=== PATIENT | female | born 1995 | race Caucasian/White ===

== ENCOUNTER → 2022-06-22 | Outpatient (CLI) | payer OTHER, SELFPAY ==
[2022-06-22 16:13] LABS: Hemoglobin A1c 5.1 % (3.8-5.6)
[2022-06-22 16:15] LABS: Estradiol 70.9 pg/mL; Follicle Stimulating Hormone 3.6 mIU/mL; Luteinizing Hormone 6.3 mIU/mL; T4 Free Direct 0.88 ng/dL (0.76-1.46)
== END | disposition home or self-care (01) ==
LOC: WOBLAB 14:34
PROVIDERS: Visit Provider Student in an Organized Health Care Education/Training Program
DX: N97.9 Female infertility, unspecified (principal)
CPT/HCPCS: 36415; 82670; 83001; 83002; 83036; 84144; 84439; 84443

== ENCOUNTER 2022-09-07 10:10 | Outpatient (CLI) | payer OTHER, SELFPAY ==
[2022-09-07 11:14] LABS: Free T3 2.7 pg/mL (2.18-3.98); T4 Free Direct 0.97 ng/dL (0.76-1.46); Thyroid Stim Hormone (TSH) 4.06 uIU/mL (0.358-3.74)
== END 2022-09-07 23:59 | disposition home or self-care (01) ==
LOC: WOBLAB 10:12
PROVIDERS: Visit Provider Student in an Organized Health Care Education/Training Program
DX: E02 Subclinical iodine-deficiency hypothyroidism (principal)
CPT/HCPCS: 36415; 84439; 84443; 84481

== ENCOUNTER → 2022-11-02 | Outpatient (CLI) | payer OTHER, SELFPAY ==
[2022-11-02 16:54] LABS: Absolute Lymphocyte Count 2.41 X10^3/uL (0.83-4.51); Absolute Neutrophil Count 6.5 X10^3/uL (2.0-7.7); Basophil# 0.04 X10^3/uL; Basophil% 0.4 % (0-1); Eosinophil# 0.18 X10^3/uL; Eosinophils% 1.9 % (0-5); Hemoglobin 12.7 g/dL (12.0-15.0); Lymphocyte # 2.41 X10^3/ul (0.83-4.51); Mean Corp Hgb Conc 35.3 g/dL (32-36); Mean Corpuscular Hgb 30.3 pg (27.0-32.0); Mean Corpuscular Volume 85.9 fL (81-99); Mean Platelet Vol. 9.7 fl (6.2-12.0); Monocyte# 0.46 X10^3/uL; Monocyte% 4.8 % (0-10); NRBC Flagged by Analyzer 0 % (0-5); Neutrophil # 6.53 X10^3/uL (2.7-7.7); Neutrophil % 67.7 % (47-70); Platelet Count 241 K/mm3 (150-450); RBC Distribution Width CV 12.9 % (11.6-14.6); RBC Distribution Width SD 39.8 fl (35.1-43.9); Red Blood Count 4.19 M/mm3 (4.2-5.4); White Blood Count 9.6 K/mm3 (4.4-11.0)
[2022-11-02 17:39] LABS: T4 Free Direct 1.03 ng/dL (0.76-1.46); Thyroid Stim Hormone (TSH) 1.38 uIU/mL (0.358-3.74)
[2022-11-02 18:14] LABS: HIV - WCH Non-Reactive (Nonreactive); Hepatitis B Surface Antigen Non-Reactive (Nonreactive); Hepatitis C Antibody Non-Reactive (Nonreactive); Rubella IgG Reactive (Nonreactive); Syphilis Antibodies Non-reactive
[2022-11-04 19:54] LABS: V-Zoster IgG (Immunity) 1522 index (Immune >165)
[2022-11-06 18:09] LABS: HPV Reflexed? NOT INDICATED
== END | disposition home or self-care (01) ==
LOC: WOBLAB 16:25
PROVIDERS: Visit Provider Student in an Organized Health Care Education/Training Program
DX: Z34.81 Encounter for supervision of other normal pregnancy, first trimester (principal); E03.9 Hypothyroidism, unspecified
CPT/HCPCS: 36415; 84439; 84443; 85025; 86703; 86762; 86780; 86787; 86803; 87086; 87340; 88175; G0145

== ENCOUNTER → 2022-11-30 | Outpatient (CLI) | payer OTHER, SELFPAY ==
[2022-11-30 10:34] LABS: T4 Free Direct 1.01 ng/dL (0.76-1.46); Thyroid Stim Hormone (TSH) 2.26 uIU/mL (0.358-3.74)
== END | disposition home or self-care (01) ==
LOC: WOBLAB 09:55
PROVIDERS: Visit Provider Student in an Organized Health Care Education/Training Program
DX: E02 Subclinical iodine-deficiency hypothyroidism (principal)
CPT/HCPCS: 36415; 84439; 84443

== ENCOUNTER → 2023-02-15 | Outpatient (CLI) | payer OTHER, SELFPAY ==
[2023-02-15 10:57] LABS: Hematocrit 34.5 % (37-47); Hemoglobin 11.4 g/dL (12.0-15.0); Mean Corpuscular Hgb 30.2 pg (27.0-32.0); Mean Corpuscular Volume 91.3 fL (81-99); Mean Platelet Vol. 10.4 fl (6.2-12.0); Platelet Count 199 K/mm3 (150-450); RBC Distribution Width CV 13.3 % (11.6-14.6); RBC Distribution Width SD 44.6 fl (35.1-43.9); Red Blood Count 3.78 M/mm3 (4.2-5.4); White Blood Count 10.6 K/mm3 (4.4-11.0)
[2023-02-15 11:11] LABS: Glucose Challenge Gest 1H 50g 80 mg/dL (70-140); T4 Free Direct 0.95 ng/dL (0.76-1.46); Thyroid Stim Hormone (TSH) 3.55 uIU/mL (0.358-3.74)
[2023-02-15 11:23] LABS: Syphilis Antibodies Non-reactive
== END | disposition home or self-care (01) ==
LOC: WOBLAB 10:16
PROVIDERS: Visit Provider Student in an Organized Health Care Education/Training Program
DX: Z34.82 Encounter for supervision of other normal pregnancy, second trimester (principal); E03.9 Hypothyroidism, unspecified
CPT/HCPCS: 36415; 82950; 84439; 84443; 85027; 86780

== ENCOUNTER → 2023-05-03 | Outpatient (CLI) | payer OTHER, SELFPAY ==
[2023-05-03 11:33] LABS: Hematocrit 38.3 % (37-47); Hemoglobin 12.6 g/dL (12.0-15.0); Mean Corp Hgb Conc 32.9 g/dL (32-36); Mean Corpuscular Hgb 30.5 pg (27.0-32.0); Mean Corpuscular Volume 92.7 fL (81-99); Mean Platelet Vol. 10.9 fl (6.2-12.0); Platelet Count 184 K/mm3 (150-450); RBC Distribution Width CV 13.8 % (11.6-14.6); RBC Distribution Width SD 46.7 fl (35.1-43.9); Red Blood Count 4.13 M/mm3 (4.2-5.4); White Blood Count 11.6 K/mm3 (4.4-11.0)
[2023-05-03 12:07] LABS: T4 Free Direct 0.88 ng/dL (0.76-1.46); Thyroid Stim Hormone (TSH) 2.31 uIU/mL (0.358-3.74)
[2023-05-04 14:19] LABS: Thyroglobulin Antibody < 1.0 IU/mL (0.0-0.9); Thyroid Peroxidase AB < 9 IU/mL (0-34)
== END | disposition home or self-care (01) ==
PROVIDERS: Visit Provider Student in an Organized Health Care Education/Training Program
DX: Z34.03 Encounter for supervision of normal first pregnancy, third trimester (principal); E03.9 Hypothyroidism, unspecified; Z36.5 Encounter for antenatal screening for isoimmunization
CPT/HCPCS: 36415; 84439; 84443; 85027; 86376; 86800; 87081

== ENCOUNTER 2023-06-06 19:00 | Inpatient (IN) | payer OTHER, SELFPAY ==
[2023-06-06] MEDS: 0.9% Saline Lock 10 ML Syringe IV (19:20)
[2023-06-06 19:27] VITALS: BP 127/77; PULSE 101; TEMP 37.2
[2023-06-06 19:34] LABS: Absolute Lymphocyte Count 2.51 X10^3/uL (0.83-4.51); Absolute Neutrophil Count 8.1 X10^3/uL (2.0-7.7); Basophil# 0.05 X10^3/uL; Basophil% 0.4 % (0-1); Eosinophil# 0.15 X10^3/uL; Eosinophils% 1.3 % (0-5); Hematocrit 37.7 % (37-47); Lymphocyte # 2.51 X10^3/ul (0.83-4.51); Lymphocyte % 21.8 % (19-41); Mean Corp Hgb Conc 34.5 g/dL (32-36); Mean Corpuscular Hgb 30.7 pg (27.0-32.0); Mean Corpuscular Volume 88.9 fL (81-99); Mean Platelet Vol. 10.9 fl (6.2-12.0); Monocyte# 0.64 X10^3/uL; Monocyte% 5.5 % (0-10); NRBC Flagged by Analyzer 0 % (0-5); Neutrophil # 8.12 X10^3/uL (2.7-7.7); Neutrophil % 70.4 % (47-70); Platelet Count 200 K/mm3 (150-450); RBC Distribution Width CV 13.5 % (11.6-14.6); RBC Distribution Width SD 43.8 fl (35.1-43.9); Red Blood Count 4.24 M/mm3 (4.2-5.4); White Blood Count 11.5 K/mm3 (4.4-11.0)
[2023-06-06 19:46] VITALS: BMI 28.3
[2023-06-06] MEDS: miSOPROStol 25 MCG TABLET VAGINAL (20:18)
[2023-06-06 20:46] LABS: Syphilis Antibodies Non-reactive
[2023-06-07] VITALS (43 sets, daily range): BP systolic 107–131; BP diastolic 55–86; PULSE 64–149; TEMP 36.7–37.5; O2SAT 79–100
[2023-06-07] MEDS: miSOPROStol 25 MCG TABLET VAGINAL ×2 (00:10→04:22)
--- NOTE | 2023-06-07 09:08 | PCM.HP.BLA ---
History and Physical Chief complaint: Induction of labor at term History present illness: 27-year-old G1, P0 at 41 weeks and 3 days with ROS 05/28/2023 arrives for induction of labor at term. Denies headache, vision change, chest pain, shortness of breath, nausea, right upper quadrant pain. is complicated by BMI 28 Obstetric history: G1: Current Past medical history: None Medications: vitamin Past surgical history: None Allergies: No known drug allergies Social history: Denies smoking, alcohol use, drug use Family history: Denies history DVT or PE Review of systems: Besides above pertinent positives a full review of systems was performed and found to be negative Physical exam: Vitals: Temperature 98.8 ?F SPO2 100% on room air General: Normal-appearing no acute distress HEENT: Normocephalic/atraumatic no cervical lymphadenopathy Cardiac/respiratory: No use of accessory muscles, nonlabored breathing Abdomen: Soft, nontender, gravid Extremities: No peripheral edema normal peripheral pulses Psych: Normal affect, demeanor nonpressured speech Labs: White blood cell count 11.5 hemoglobin 13.0 hematocrit 37.7% platelets 200. RPR nonreactive. Blood type a positive antibody negative Assessment and plan: Called by nursing with evening induction last night given orders for Cytotec 25 mcg vaginally every 4 hours. To call with any questions or concerns. Nursing stated understanding. Called this morning by nursing with Quan score 8 and not meeting criteria for Cytotec given orders for Pitocin. Signed out by nursing that patient possibly with rupture of membranes discussed ROM versus expectant management for expectant management. Patient seen and examined. 27-year-old G1, P0 at 41 weeks and 3 days for induction of labor at term Admit labor and delivery CEFM GBS negative Initially Cytotec induction now Pitocin induction
[2023-06-07] MEDS: Lactated Ringers 1,000 ML 50 ML IV (09:16)
[2023-06-07] MEDS: 0.9% Saline Lock 10 ML Syringe IV ×3 (09:17→20:51)
[2023-06-07] MEDS: Oxytocin 15 Units/NS 250ml 15 UNITS/250 ML IV.SOLN 2 UNITS IV (09:17)
[2023-06-07] MEDS: LACTATED RINGERS 500 ML 999 ML IV ×2 (12:23→16:45)
[2023-06-07] MEDS: fentaNYL-bupivacaine (epidural) 100 ML BAG EPIDURAL ×2 (17:51→21:49)
--- NOTE | 2023-06-07 18:30 | PN.OBGYN_ITS ---
Subjective Subjective Patient now comfortable with epidural Objective Data Objective Data Vital Signs: Vital Signs Temp Pulse BP Pulse Ox 98.8 F 76 113/60 99 06/07/23 17:30 06/07/23 17:58 06/07/23 17:58 06/07/23 17:55 Weight: 170 lb 3.2 oz Body Mass Index (BMI) 28.3 Intake & Output: Intake and Output for Last 24 Hours 06/05/23 06/06/23 06/07/23 23:59 23:59 23:59 Intake Total 100 / 400 2768.43 / 2768.43 Output Total 2950 / 2950 Balance 100 / 0 -181.57 / -181.57 Lab / Micro Data 06/06/23 19:20 Labs: Laboratory Results - last 24 hr 06/06/23 19:20: WBC 11.5 H, RBC 4.24, Hgb 13.0, Hct 37.7, MCV 88.9, MCH 30.7, MCHC 34.5, RDW Std Deviation 43.8, RDW Coeff of Bhakti 13.5, Plt Count 200, MPV 1 0.9, Immature Gran % (Auto) 0.600, Neut % (Auto) 70.4 H, Lymph % (Auto) 21.8, [place] % (Auto) 5.5, Eos % (Auto) 1.3, Baso % (Auto) 0.4, Absolute Neuts (auto) 8.1 H, Absolute Lymphs (auto) 2.51, Nucleated RBC % 0, Syphilis Total Ab Non- reactive, Blood Type O POSITIVE, Antibody Screen NEGATIVE Physical Exam Const alert, oriented x3, no apparent distress, average body habitus, healthy appear ing and well nourished HEENT normocephalic and moist oral mucous membranes Eyes PERRL Neck full ROM Resp normal respiratory effort, no retractions and no use of accessory muscles GI GI Narrative: Soft, nontender, gravid Narrative: Cervical exam: /-1. AROM clear fluid. IUPC placed with ease Psych mental status grossly normal, affect normal, speech normal and activity/motor behavior normal Assessment & Plan (1) : PLAN: Called by nursing patient with tachysystole Pitocin turned off nursing also reports cervical exam 2 cm with some bloody show overall been monitoring with no increased bleeding. Instructed to manage Pitocin per protocol. Again called by nursing with cervical exam 2-1/2 cm and tachysystole bleeding is now stopped per nursing. Instructed to give Pitocin per protocol. Patient seen and examined status post epidural. Now comfortable with epidural. Educated patient on AROM wrist benefits alternatives. Patient states understanding wish to pr oceed. AROM clear fluid. IUPC placed. Educated patient on labor management and care plan, patient and partner state understanding. All questions answered. Continue to titrate Pitocin
[2023-06-07] MEDS: Ondansetron 4 MG/2 ML Vial IV (20:51)
[2023-06-07] MEDS: Lactated Ringers 1,000 ML 200 ML IV (22:43)
[2023-06-08] VITALS (43 sets, daily range): BP systolic 104–132; BP diastolic 54–74; PULSE 78–128; RESP 16; TEMP 36.5–38.3; O2SAT 94–100
[2023-06-08] MEDS: Methylergonovine 0.2 MG/ML Ampul IM (01:43)
--- NOTE | 2023-06-08 02:00 | EX.PCM.OBRPT ---
Vaginal Delivery Findings Description of Procedure: Called by nursing patient complete and +2 given orders to start pushing. Again called by nursing patient greater than 3 hours pushing. After personal review of heart rate tracing noted to be greater than 4 hours of pushing and arrived for assessment. Upon arrival normal progression of labor noted. And subsequently, normal spontaneous vaginal delivery of a viable male , vertex LOP. Head and shoulders delivered with ease. Cord clamped and cut. Baby handed off to patient. Placenta delivered via cord traction and fundal massage. IV oxytocin given per protocol. IM Methergine given for prophylaxis with prolonged second stage of labor. Second-degree midline perineal laceration noted and repaired in typical fashion, left labial laceration noted and repaired in typical fashion. Good hemostasis was noted. Bladder drained with red rubber catheter for 100 cc. EBL 400 cc Apgars 8/9
[2023-06-08] MEDS: Oxytocin 15 Units/NS 250ml 15 UNITS/250 ML IV.SOLN 83 UNITS IV (02:11)
[2023-06-08] MEDS: Acetaminophen 500 MG Tablet 1000 MG PO ×3 (04:28→21:38)
[2023-06-08] MEDS: Levothyroxine 50 MCG Tablet PO (06:02)
[2023-06-08] MEDS: Ibuprofen 600 MG Tablet PO ×2 (10:00→20:23)
[2023-06-08] MEDS: Benzocaine/Lanolin/Aloe Vera 1 SPRAY EACH TOPICAL (20:23)
[2023-06-09 03:54] VITALS: BP 114/80; PULSE 86; RESP 16; TEMP 36.8; O2SAT 98
[2023-06-09 03:55] VITALS: BP 114/80; PULSE 82
[2023-06-09] MEDS: Levothyroxine 50 MCG Tablet PO (05:07)
--- NOTE | 2023-06-09 06:50 | DS.PCM_ITS ---
Discharge Summary Date of Admission: 06/06/23 Date of Discharge: 06/09/23 Summary: Patient arrived on 06/06/2023 for induction of labor at term. Subsequent delivered vaginally on 06/08/2023. fever noted and diagnosed with suspected chorioamnionitis given ampicillin and gentamicin for 24 hours. Routine recovery otherwise. Discharged home on 06/09/2023 Meaningful Use Info Meaningful Use Diagnoses (Choose all that apply): None applicable Discharge Plan Admission Admit Date/Time: 06/06/23 19:00 Primary Reason for Your Visit: Induction of labor Attending Provider: Edgar Bear Instructions Additional Instructions / Restrictions: Regular diet. Okay to shower. Weightbearing as tolerated. No intercourse for 6 to 8 weeks. Call if fevers, chills, chest pain, shortness of breath. Follow- up 2 to 3 weeks Discharge Orders/Prescriptions Prescriptions: No Action levothyroxine 25 mcg tablet 50 mcg PO DAILY Patient Comments: TAKE ONE TABLET BY MOUTH DAILY PNV [id number] [] 28 mg iron- 800 mcg tablet 1 tab PO DAILY Disposition Disposition (needs filled in before D/C Order can be placed): Home, Self Care
--- NOTE | 2023-06-09 06:52 | PN.OBGYN_ITS ---
Subjective Subjective No overnight complaints. Denies fevers, chills, chest pain, shortness of breath Objective Data Objective Data Vital Signs: Vital Signs Temp Pulse Resp BP Pulse Ox O2 Del Method 98.3 F 82 16 114/80 98 Room Air 06/09/23 03:54 06/09/23 03:55 06/09/23 03:54 06/09/23 03:55 06/09/23 03:54 06/09/23 03:54 Oxygen Delivery Method Room Air Weight: 170 lb 3.2 oz Body Mass Index (BMI) 28.3 Intake & Output: Intake and Output for Last 24 Hours 06/07/23 06/08/23 06/09/23 23:59 23:59 23:59 Intake Total 3771.20 / 3771.20 1460.26 / 1460.26 Output Total 3450 / 3450 1300 / 1300 Balance 321.20 / 321.20 160.26 / 160.26 Lab / Micro Data 06/06/23 19:20 Physical Exam Const alert, oriented x3, no apparent distress, average body habitus, healthy appearing and well nourished HEENT normocephalic and moist oral mucous membranes Eyes PERRL Neck full ROM Resp normal respiratory effort, no retractions and no use of accessory muscles GI GI Narrative: Soft, nontender, uterus firm and below umbilicus, nontender fundus Extremity normal to inspection and full ROM Neuro moves all extremities and no focal motor deficits Psych mental status grossly normal, affect normal, speech normal and activity/motor behavior normal Assessment & Plan (1) Vaginal delivery: PLAN: day 1. Breast-feeding. Pain well controlled. Called by nursing after delivery with persistent temperature greater than 100.4 Fahrenheit greater than 30 minutes apart, diagnosed with suspected chorioamnionitis and given ampicillin and gentamicin for 24 hours. Patient status post antibiotics and remains afebrile and asymptomatic. Educated patient on findings and care plan going forward, patient and partner state understanding. 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
[2023-06-09 08:15] VITALS: BP 125/72; PULSE 85; RESP 16; TEMP 36.9; O2SAT 100
[2023-06-09 08:16] VITALS: BP 125/72; PULSE 94
[2023-06-09] MEDS: Acetaminophen 500 MG Tablet 1000 MG PO ×2 (08:31→14:59)
[2023-06-09 14:56] VITALS: BP 115/76; PULSE 92; PULSE 95; PULSE 97; RESP 16; TEMP 36.6; O2SAT 98; O2SAT 99
== END 2023-06-09 16:34 | disposition home or self-care (01) | DRG 805 ==
PROVIDERS: Admitting Provider Obstetrics & Gynecology; Visit Provider Obstetrics & Gynecology
DX: O48.0 Post-term pregnancy (principal); Z37.0 Single live birth; O41.1230 Chorioamnionitis, third trimester, not applicable or unspecified; O70.1 Second degree perineal laceration during delivery; Z3A.41 41 weeks gestation of pregnancy
CPT/HCPCS: 59025; 59050; 85025; 86780; 86850; 86900; 86901; 99221; J7120; A4216; G0378; J2405